=== PATIENT | male | born 1985 | race Caucasian/White ===

== ENCOUNTER 2017-04-08 09:34 | Day surgery (SDC) | payer BC ==
[~2017-04-08 09:34] MED LIST: Clindamycin Phosphate in D5W 600 MG in Premix Bag 50 BAG IV ONE; Lactated Ringers 1,000 ML IV SCH; ceFAZolin 2 GM in Premix Bag 1 BAG IV ONE
[2017-04-08] MEDS ORDERED: Dexamethasone 4 MG/ML 5 ML MDV ONE (09:51)
[2017-04-08] MEDS ORDERED: Ondansetron 4 MG/2 ML SDV ONE (09:51)
[2017-04-08] MEDS ORDERED: Rocuronium 10 MG/ML 10 ML Syringe ONE (09:51)
[2017-04-08] MEDS ORDERED: Midazolam 1 MG/ML 2 ML SDV ONE (09:52)
[2017-04-08] MEDS ORDERED: Lidocaine 2% 5 ML SDV ONE (09:52)
[2017-04-08] MEDS ORDERED: fentaNYL 100 MCG/2 ML SDV ONE (09:52)
[2017-04-08] MEDS ORDERED: Propofol 200 MG/20 ML SDV ONE (09:52)
--- NOTE | 2017-04-08 10:08 | PCM.PREANE ---
Preanesthetic Assessment - Anesthesia/Transfusion/Family Hx Anesthesia History: No Prior Anesthesia Family History of Anesthesia Reaction: No Transfusion History: No Prior Transfusion(s) - Review of Systems General: No Symptoms Pulmonary: No Symptoms Cardiovascular: No Symptoms Gastrointestinal: No Symptoms Neurological: No Symptoms Other: Reports: None - Physical Assessment NPO Status Date: 04/07/17 O2 Sat by Pulse Oximetry: 98 Respiratory Rate: 16 Vital Signs: Last Vital Signs Temp 36.4 C 04/08/17 09:43 Pulse 80 04/08/17 09:43 Resp 16 04/08/17 09:43 BP 163/83 H 04/08/17 09:43 Pulse Ox 98 04/08/17 09:43 Height: 1.7 m Weight: 92.986 kg ASA Class: 1 Mental Status: Alert & Oriented x3 Airway Class: Mallampati = 2 Dentition: Reports: Normal Dentition ROM/Head Extension: Full Lungs: Clear to Auscultation, Normal Respiratory Effort Cardiovascular: Regular Rate, Regular Rhythm - Allergies Allergies/Adverse Reactions: Allergies Allergy/AdvReac Type Severity Reaction Status Date / Time No Known Allergies Allergy Verified 04/06/17 11:16 - Anesthesia Plan Pre-Op Medication Ordered: None - Acknowledgements Anesthesia Type Planned: General Anesthesia Pt an Appropriate Candidate for the Planned Anesthesia: Yes Alternatives and Risks of Anesthesia Discussed w Pt/Guardian: Yes Pt/Guardian Understands and Agrees with Anesthesia Plan: Yes PreAnesthesia Questionnaire - Past Surgical History Head Surgeries/Procedures: Reports: None GI Surgical History: Reports: Other (See Below) Other GI Surgeries/Procedures: I&D of pilonydal cyst under local x2 in doctors office - SUBSTANCE USE Tobacco Use Within Last Twelve Months: Other (See Below) Recreational Drug Use History: No - HOME MEDS Home Medications: Home Meds . [No Known Home Meds] 04/06/17 [History] - CURRENT (IN HOUSE) MEDS Current Meds: Current Medications Lactated Ringer's (Ringers, Lactated) 1,000 mls @ 125 mls/hr IV ASDIRECTED TERRA Last Admin: 04/08/17 09:45 Dose: 125 mls/hr Clindamycin Phosphate 600 mg/ (Premix) 50 mls @ 100 mls/hr IV ONETIME ONE Stop: 04/08/17 10:44 Discontinued Medications Dexamethasone (Dexamethasone) Confirm Administered Dose 20 mg .ROUTE .STK-MED ONE Stop: 04/08/17 09:52 Fentanyl (Sublimaze) Confirm Administered Dose 200 mcg .ROUTE .STK-MED ONE Stop: 04/08/17 09:53 Cefazolin Sodium/Dextrose 2 gm (/ Premix) 50 mls @ 100 mls/hr IV ONETIME ONE Stop: 04/07/17 15:29 Clindamycin Phosphate 600 mg/ (Premix) 50 mls @ 100 mls/hr IV ONETIME ONE Stop: 04/08/17 05:29 Lidocaine (Xylocaine-Mpf 2%) Confirm Administered Dose 5 ml .ROUTE .STK-MED ONE Stop: 04/08/17 09:53 Midazolam HCl (Versed 1 Mg/Ml) Confirm Administered Dose 2 mg .ROUTE .STK-MED ONE Stop: 04/08/17 09:53 Ondansetron HCl (Zofran) Confirm Administered Dose 4 mg .ROUTE .STK-MED ONE Stop: 04/08/17 09:52 Propofol (Diprivan 20 Ml) Confirm Administered Dose 200 mg .ROUTE .STK-MED ONE Stop: 04/08/17 09:53 Rocuronium [place] (Zemuron) Confirm Administered Dose 100 mg .ROUTE .STK-MED ONE Stop: 04/08/17 09:52
[2017-04-08] MEDS ORDERED: Clindamycin Phosphate in D5W 600 MG in Premix Bag 50 BAG IV ONE ×4 (10:15→11:45)
[2017-04-08] MEDS ORDERED: Acetaminophen/oxyCODONE 325-5 MG Tab PO ONE (11:20)
[2017-04-08] MEDS ORDERED: Methylene Blue 50 MG/10 ML Ampule ONE (11:30)
[2017-04-08] MEDS ORDERED: HYDROmorphone 2 MG/ML Syringe ONE (11:39)
--- NOTE | 2017-04-08 12:39 | PCM.OPNOTE ---
- General Post-Op/Procedure Note Date of Surgery/Procedure: 04/08/17 Operative Procedure(s): pilonydal cystectomy Findings: dots and pits tracted all the way up to previous surgical site, 8 cm cephalic; excised; no signs or symptoms of infection encountered; [id number] Pre Op Diagnosis: recurrent pilonydol cyst Post-Op Diagnosis: Same Anesthesia Technique: General ET Tube Primary Surgeon: Marko Lobo Pathology: pilonydal cyst with a tract Complications: None Condition: Good
--- NOTE | 2017-04-08 13:02 | PCM.POSTAN ---
POST ANESTHESIA ASSESSMENT - MENTAL STATUS Mental Status: Alert, Oriented - RESPIRATORY Respiratory Status: Respiratory Rate WNL, Airway Patent, O2 Saturation Stable - CARDIOVASCULAR CV Status: Pulse Rate WNL, Blood Pressure Stable - GASTROINTESTINAL GI Status: No Symptoms - PAIN Pain Score: 6 - POST OP HYDRATION Hydration Status: Adequate & Stable
--- NOTE | 2017-04-08 13:43 | PCM48HPAN ---
Post Anesthesia Note - EVALUATION WITHIN 48HRS OF ANESTHETIC Vital Signs in Normal Range: Yes Patient Participated in Evaluation: Yes Respiratory Function Stable: Yes Airway Patent: Yes Cardiovascular Function Stable: Yes Hydration Status Stable: Yes Pain Control Satisfactory: Yes Nausea and Vomiting Control Satisfactory: Yes Mental Status Recovered: Yes
[2017-04-08 14:10] VITALS: BP 136/64
--- NOTE | 2017-04-08 15:07 | OR ---
SURGEON: Marko Lobo MD DATE OF PROCEDURE: 04/08/2017 PREOPERATIVE DIAGNOSIS: Recurrent pilonidal cyst. POSTOPERATIVE DIAGNOSIS: Recurrent pilonidal cyst. PROCEDURE PERFORMED: Pilonidal cystectomy. COMPLICATIONS: None. FINDINGS: The disease is moderately extensive. It goes all the way to the tailbone as showed by the blue color dye and also it track upwards to the previous infection site almost like a 7 to 8 cm from the pits and dot, and all blue area excised. Incision is closed about 10 cm. PROCEDURE IN DETAIL: The patient was taken to the operating room and placed in supine position. Upon induction of general endotracheal anesthesia, the patient was repositioned into a jackknife position prone and area was then prepped and draped in a sterile fashion. A time-out was being called. The patient was identified, procedure identified, antibiotic was given. Procedure was then started. After assessment of appropriate landmark, the place where the dots are, which is only like 4 to 5 cm from the anal opening, quite high up, a fish-mouth incision was made, which included a lot of dots. Prior to the skin incision, methylene blue dye 50%:50% and hydrogen peroxide was injected, which showed that the tunnel tracked all the way up to the previous infection surgical site almost like a 7 to 8 cm from the dot cephalic and decided to include excision. The incision was about 10 cm and the skin involved with dot excised and previous incision scar was also excised and everything blue is mostly excised and excision is to go all the way to the periosteum of the tailbone. Good hemostasis achieved by using electrocautery and then a space closed with 2-0 Vicryl 4 stitches and then the wound was closed with a single interrupted 2-0 Prolene followed by appropriate dressing. The patient was then repositioned into a supine position, awakened, extubated, and transferred to recovery in hemodynamically stable condition. The patient tolerated the procedure well. There were no intraoperative complications. Dr. Lobo was present throughout the procedure. As always, thank you for the kind referral. ALBERTA SANCHEZ /[id number]
== END 2017-04-08 14:14 | disposition home or self-care (01) ==
LOC: MW.SDS 09:34
PROVIDERS: ATTEND Surgery
PROC: 0HB8XZZ Excision of Buttock Skin, External Approach (ICD-10-PCS; principal; 2017-04-08)
DX: L05.91 Pilonidal cyst without abscess (principal); Z98.890 Other specified postprocedural states
CPT/HCPCS: 11770; J1100; J1170; J2250; J2405; J3010; J7120; 00300; 88305; J2704